=== PATIENT | female | born 1990 | race Caucasian/White ===

== ENCOUNTER 2018-03-08 18:03 | Emergency (ER) | END 2018-03-08 21:49 | disposition home or self-care (01) ==

== ENCOUNTER 2018-03-26 13:21 | Emergency (ER) | END 2018-03-26 15:35 | disposition home or self-care (01) ==

== ENCOUNTER 2018-04-03 18:35 | Emergency (ER) | END 2018-04-04 00:57 | disposition home or self-care (01) ==

== ENCOUNTER 2018-04-17 18:24 | Emergency (ER) | END 2018-04-17 21:05 | disposition home or self-care (01) ==

== ENCOUNTER 2018-04-24 00:05 | Emergency (ER) | END 2018-04-24 03:38 | disposition home or self-care (01) ==

== ENCOUNTER 2018-05-09 17:31 | Emergency (ER) | END 2018-05-09 20:56 | disposition home or self-care (01) ==

== ENCOUNTER 2018-07-30 13:00 | Inpatient (IN) | END 2018-08-01 18:55 | disposition home or self-care (01) | DRG 831 ==

== ENCOUNTER 2018-10-06 14:46 | Outpatient (CLI) | payer OTHER ==
[~2018-10-06] VITALS: Ht 172.7 cm; Wt 80.0 kg
[~2018-10-06 14:46] MED LIST: AMOX250S25 PO; CEPH-443 PO; DOXY1TAB3 PO; ONDA4TAB14 PO; ONDA4TAB8 PO
[2018-10-06 15:07] VITALS: Ht 172.7 cm; Wt 80.0 kg
[2018-10-06 15:08] VITALS: BP 108/73; PULSE 99; RESP 20
[2018-10-06] MEDS ORDERED: PREN1TAB13 PO (15:15)
--- NOTE | 2018-10-06 18:03 | TRIAGE ---
OB Triage Datetime Report Generated by CPN: 10/06/2018 18:03 Datetime: 10/06/2018 15:20 Maternal Assessment Level of Consciousness: Fully Conscious DTR's/Clonus: DTRs 2+ Headache: Denies Blurred Vision: No Nausea/Vomiting: Denies RUQ Epigastric Pain: Denies Facial Edema: None Labor Evaluation Frequency: NONE Pattern: Normal: <= 5 Contractions in 10 Minutes Resting Tone [place]: Relaxed Heart Rate FHR Baseline Rate: 140 Monitor Mode: External US FHR Baseline Changes: No Baseline Change Variability: Moderate 6-25 bpm Accelerations: 15X15 Decelerations: None Category: Category I Pain Assessment Pain Scale: 3 Pain Presence: Constant Pain Goal: 3 Vaginal Exam Dilatation (cms): 0.0 Effacement (%): 0 Exam By: JERI MAN Vaginal Bleeding: None Cervix, Consistency: Firm Cervix, Position: Posterior Datetime: 10/06/2018 15:19 Time of Arrival: 10/06/2018 14:36 EGA: 39.0 Arrived By: Ambulatory Arrived From: Home Chief Complaint: LEAKAGE OF FLUID AND LOWER ABS AND BACK PAIN Movement: Present Contractions: Denies/Absent Rupture of Membranes: Denies Vaginal Bleeding: None Vaginal Discharge: Denies Recent Sexual Intercouse: Denies Abdominal Trauma: Not Applicable Time Provider Notified: 10/06/2018 15:30 (Annotations: Data stored by N on behalf of user) Provider Notified: DR CASTANEDA Initial Plan: EFM,CALL DR CASTANEDA Datetime: 10/06/2018 15:17 Maternal Assessment Level of Consciousness: Fully Conscious DTR's/Clonus: DTRs 2+; No Clonus Headache: Denies Blurred Vision: No Respiratory Effort: Unlabored; Regular Rhythm; Equal Expansion Breath Sounds, Left: Clear and Equal Breath Sounds, Right: Clear and Equal Nausea/Vomiting: Denies RUQ Epigastric Pain: Denies Facial Edema: None Temperature Route: Axillary Fall Risk Assessment History of Falling: (0) No Secondary Diagnosis: (0) No Ambulatory Aid: (0) Bedrest/Nurse Assist IV Therapy: (0) No Gait: (0) Normal/Bedrest/Immobile Mental Status: (0) Oriented to Own Ability Fall Score: 0 Fall Risk Score Definition: No Risk: No action required Datetime: 07/30/2018 15:24 Assessment Type: Admission Assessment Vaginal Bleeding: None Maternal Assessment Level of Consciousness: Fully Conscious DTR's/Clonus: DTRs 2+; No Clonus Headache: Denies Blurred Vision: No Respiratory Effort: Unlabored; Regular Rhythm; Equal Expansion Breath Sounds, Left: Clear and Equal Breath Sounds, Right: Clear and Equal Nausea/Vomiting: Denies RUQ Epigastric Pain: Denies Lower Extremities Edema: None Degree: None Upper Extremities Edema: None Degree: None Facial Edema: None Fall Risk Assessment History of Falling: (0) No Secondary Diagnosis: (0) No Ambulatory Aid: (0) Bedrest/Nurse Assist IV Therapy: (20) Yes Gait: (0) Normal/Bedrest/Immobile Mental Status: (0) Oriented to Own Ability Fall Score: 20 Fall Risk Score Definition: No Risk: No action required Labor Evaluation Frequency: none Heart Rate FHR Baseline Rate: 150 Variability: Moderate 6-25 bpm Accelerations: 10X10 Decelerations: None Pain Presence: None/Denies Membrane Status: Intact Datetime: 07/30/2018 12:10 Time of Arrival: 07/30/2018 13:09 EGA: 29.2 Arrived By: Ambulatory Arrived From: Home Fall Score: 0 Fall Risk Score Definition: No Risk: No action required
--- NOTE | 2018-10-06 23:39 | PN ---
Triage Information Date/Time October 06, 2018 Reason for visit: Rule out SROM and vaginal pressure Weeks of Gestation 39 weeks /Para 3 para 1 Diabetes: none Hypertention: none Additional information 27-year-old with IUP at 39 weeks presented with complaint of vaginal pressure and leaking of fluid. Reports some discharge. She denies any decreased movement or uterine contractions. Objective Vital Signs Date Temp Pulse Resp B/P (MAP) Pulse Ox O2 O2 Flow FiO2 Time Delivery Rate 10/06/18 98.5 99 20 108/73 Room Air 15:08 (85) Heart Rate: 130's Heart Rate Comments Category 1 Exam Laboratory Tests Test 10/06/18 15:00 10/06/18 16:15 Urine Color YELLOW Urine Clarity CLOUDY Urine pH 6.0 Urine Specific [place] 1.026 Urine Ketones NEGATIVE mg/dL Urine Nitrite NEGATIVE mg/dL Urine Bilirubin NEGATIVE mg/dL Urine Urobilinogen 2+ mg/dL Urine Leukocyte Esterase 1+ Cesar/ul Urine Microscopic RBC 1 /HPF Urine Microscopic WBC 12 /HPF Urine Squamous Epithelial Cells MANY /HPF Urine Bacteria FEW /HPF Urine Mucus FEW /HPF Urine Hemoglobin NEGATIVE mg/dL Urine Glucose NEGATIVE mg/dL Urine Total Protein 1+ mg/dl Membranes Rupture NEGATIVE White Blood Count 9.5 10^3/ul Red Blood Count 3.45 10^6/ul Hemoglobin 7.4 g/dl Hematocrit 24.6 % Mean Corpuscular Volume 71.3 fl Mean Corpuscular Hemoglobin 21.4 pg Mean Corpuscular Hemoglobin Concent 30.1 g/dl Red Cell Distribution Width 17.8 % Platelet Count 444 10^3/UL Mean Platelet Volume 10.6 fl Immature Granulocytes % 0.800 % Neutrophils % 65.9 % Lymphocytes % 23.2 % Monocytes % 9.0 % Eosinophils % 0.7 % Basophils % 0.4 % Nucleated Red Blood Cells % 0.3 /100WBC Immature Granulocytes # 0.080 10^3/ul Neutrophils # 6.2 10^3/ul Lymphocytes # 2.2 10^3/ul Monocytes # 0.9 10^3/ul Eosinophils # 0.1 10^3/ul Basophils # 0.0 10^3/ul Nucleated Red Blood Cells # 0.0 10^3/ul Appearance: Alert and oriented x4 does not appear to be in any acute distress Abdomen: Soft, gravid, fundal height consistent with gestational age Sterile speculum examination: No abnormal discharge, no bleeding, cervix appears closed, negative nitrazine, negative R OM test Cervix closed and long NIKOLAS: 13.4 Results/Medications Result Diagram: 10/06/18 1615 Results 24 hrs Laboratory Tests Test 10/06/18 15:00 10/06/18 16:15 Urine Color YELLOW Urine Clarity CLOUDY A Urine pH 6.0 Urine Specific [place] 1.026 Urine Ketones NEGATIVE Urine Nitrite NEGATIVE Urine Bilirubin NEGATIVE Urine Urobilinogen 2+ H Urine Leukocyte Esterase 1+ H Urine Microscopic RBC 1 Urine Microscopic WBC 12 H Urine Squamous Epithelial Cells MANY A Urine Bacteria FEW A Urine Mucus FEW A Urine Hemoglobin NEGATIVE Urine Glucose NEGATIVE Urine Total Protein 1+ H Membranes Rupture NEGATIVE White Blood Count 9.5 # Red Blood Count 3.45 L Hemoglobin 7.4 L Hematocrit 24.6 L Mean Corpuscular Volume 71.3 L Mean Corpuscular Hemoglobin 21.4 L Mean Corpuscular Hemoglobin Concent 30.1 L Red Cell Distribution Width 17.8 #H Platelet Count 444 #H Mean Platelet Volume 10.6 H Immature Granulocytes % 0.800 H Neutrophils % 65.9 Lymphocytes % 23.2 Monocytes % 9.0 Eosinophils % 0.7 Basophils % 0.4 Nucleated Red Blood Cells % 0.3 H Immature Granulocytes # 0.080 H Neutrophils # 6.2 Lymphocytes # 2.2 Monocytes # 0.9 Eosinophils # 0.1 Basophils # 0.0 Nucleated Red Blood Cells # 0.0 Imaging Results PROCEDURE: US OB biophysical profile. CLINICAL INDICATION: Evaluate well-being TECHNIQUE: Multiple sonographic images of the pelvis were obtained. The images were reviewed on a PACS workstation. COMPARISON: OB ultrasound from earlier in the same day. FINDINGS: There is a single intrauterine gestation. There is a normal amount of amniotic fluid with an NIKOLAS = 13.4 cm . Cardiac activity is present with 152 beats per minute There is a vertex presentation. The placenta is posterior. Biophysical profile: movement 2/2 tone 2/2. breathing 2/2 NIKOLAS 2/2 Total 05/02 IMPRESSION: 1. Normal biophysical profile of 05/02. 2. Single intrauterine gestation in cephalic presentation. 3. Posterior placenta without evidence of previa or abruption. PROCEDURE: US OB. CLINICAL INDICATION: Size and dates TECHNIQUE: Multiple sonographic images of the pelvis and gravid uterus were obtained. The images were reviewed on a PACS workstation. COMPARISON: No prior studies are available for comparison. FINDINGS: Gestation: Single live intrauterine gestation. Cardiac activity: 163 beats per minute. Presentation: Vertex. Placenta: Location: Posterior Appearance: No previa or abruption. Measurements: BPD = 9.2 cm, 37 weeks and 2 days, limited HC = 32.2 cm, 36 weeks and 3 days, limited due to position AC = 33.5 cm, 37 weeks and 3 days FL = 7.1 cm, 36 weeks and 4 days Gestational Age: AUA estimated gestational age: 37 weeks 0 days LMP estimated gestational age: 39 weeks 2 days AUA estimated date of delivery: 10/27/18 The EFW = 3111 g, 19.7%ile based on LMP age. RPTAT: AA IMPRESSION: Single live intrauterine gestation of 37 weeks 0 days by ultrasound criteria. Disposition: Discharge Assessment/Plan IUP at 39 weeks vaginal pressure, No evidence of PPROM or labor UTI, Rx given with Keflex QID x 7 days Adequate hydration discussed with the patient Discussed the patient to take iron daily twice a day with vitamin Anemia, asymptomatic Urine was sent for culture and sensitivity Patient was advised to be seen by her primary OB office in 48 hours to 72 hours after discharge from the hospital for follow-up of the urine culture results from the hospital and for management and evaluation of anemia. Currently asymptomatic and stable Patient verbalized understanding. All questions were answered to patient's best satisfaction. CHRISTIANO VILCHIS MD Oct 06, 2018 23:39
== END 2018-10-06 18:10 | disposition home or self-care (01) ==
LOC: OBT 14:46 → L-D 14:46 → OBT 18:10
PROVIDERS: ATTEND Obstetrics & Gynecology
DX: O26.893 Other specified pregnancy related conditions, third trimester (principal); R10.2 Pelvic and perineal pain; Z3A.39 39 weeks gestation of pregnancy
CPT/HCPCS: 76815; 76818; 81001; 84112; 85025; 87086; Z7500; G0463

== ENCOUNTER 2018-10-08 15:35 | Inpatient (IN) | payer OTHER ==
[~2018-10-08] VITALS: Ht 172.7 cm; Wt 79.0 kg
[~2018-10-08 15:35] MED LIST changes: -AMOX250S25 PO; -CEPH-443 PO; -DOXY1TAB3 PO; -ONDA4TAB14 PO; -ONDA4TAB8 PO; +PREN1TAB13 PO
--- NOTE | 2018-10-08 15:54 | TRIAGE ---
OB Triage Datetime Report Generated by CPN: 10/08/2018 15:54 Datetime: 10/08/2018 15:52 Pain Assessment Pain Scale: 8 Pain Presence: Intermittent Pain Type: Cramping Pain Location: Abdomen Pain Relief Measures: Comfort Measures Vaginal Exam Dilatation (cms): 1.0 Effacement (%): 60 Station: -3 Datetime: 10/06/2018 18:01 Time of Arrival: 10/08/2018 15:35 EGA: 39.2 Arrived By: Wheelchair Arrived From: Home Chief Complaint: UC'S Movement: Present Contractions: Regular Rupture of Membranes: Denies Vaginal Bleeding: None Vaginal Discharge: Denies Recent Sexual Intercouse: Denies Abdominal Trauma: Not Applicable Patient Complaints: Contractions Time Provider Notified: 10/08/2018 15:40 Provider Notified: SALCEDA Datetime: 10/06/2018 15:19 EGA: 39.0 Datetime: 10/06/2018 15:17 Fall Risk Assessment Fall Score: 0 Fall Risk Score Definition: No Risk: No action required Datetime: 07/30/2018 15:24 Fall Risk Assessment Fall Score: 20 Fall Risk Score Definition: No Risk: No action required Datetime: 07/30/2018 12:10 EGA: 29.2 Fall Risk Assessment Fall Score: 0 Fall Risk Score Definition: No Risk: No action required
[2018-10-08 16:00] VITALS: BP 113/71; PULSE 100; RESP 18; Ht 172.7 cm; Wt 79.0 kg
[2018-10-08] MEDS ORDERED: MISOPROSTOL 200 MCG TAB PR PRN ×2 (16:30→23:30)
[2018-10-08] MEDS ORDERED: LIDOCAINE 1% (MPF) 30 ML INJ INJ PRN (16:30)
[2018-10-08] MEDS ORDERED: METHYLERGONOVINE 0.2 MG INJ IM PRN ×2 (16:30→23:30)
[2018-10-08] MEDS ORDERED: OXYTOCIN 30 UNITS/LR 500 ML IV SCH ×3 (16:30→23:11)
[2018-10-08] MEDS ORDERED: IBUPROFEN 600 MG TAB PO PRN (16:30)
[2018-10-08] MEDS ORDERED: CARBOPROST 250 MCG INJ IM PRN ×2 (16:30→23:30)
[2018-10-08] MEDS ORDERED: BUTORPHANOL 2 MG INJ IV PRN (16:30)
[2018-10-08] MEDS ORDERED: BUTORPHANOL 1 MG INJ IV PRN (16:30)
[2018-10-08] MEDS ORDERED: OXYTOCIN 30 UNITS/LR 500 ML IV PRN ×2 (16:30→23:30)
[2018-10-08] MEDS: LACTATED RINGER'S 1,000 ML IV SCH ×2 (16:32→20:55)
[2018-10-08] MEDS ORDERED: FENTAnyl 2MCG/ML-ROPIV 0.2% 100 ML ONE (21:32)
--- NOTE | 2018-10-08 21:48 | PREAC ---
Date/Time of Note Date/Time of Note DATE: 10/08/18 TIME: 21:47 Anesthesia Eval and Record Evaluation Time Pre-Procedure Interview DATE: 10/08/18 TIME: 21:47 Age 27 Sex female NPO: 8 hrs Preoperative diagnosis Labor Pain Planned procedure Labor Epidural Past Medical History Past Medical History: Includes Heme: Anemia : : (3), Para: (1), Gestational age: (39) Surgery & Anesthesia Issues No known issue Meds Anticoagulation: No Beta Moy within 24 hr: No Reason Beta Moy not given: Pt. not on B-Moy Reported Medications Pnv95/Ferrous Fumarate/FA ( Vitamins Tablet) 1 Each Tablet, 1 EACH PO, TAB 10/06/18 Discontinued Scripts Ondansetron (Ondansetron Odt) 4 Mg Tab.rapdis, 4 MG PO Q6H PRN for NAUSEA AND/OR VOMITING, #10 TAB Prov:STEPHANIE DUMONT PA-C 05/09/18 Cephalexin* (Keflex*) 500 Mg Capsule, 500 MG PO QID for 5 Days, CAP Prov:STEPHANIE DUMONT PA-C 05/09/18 Doxylamine/Pyridoxine Hcl (TEGAN DR 10-10 MG TABLET) 1 Each Tablet., 1 TAB PO DAILY, #20 TAB Prov:STEPHANIE WARD 04/24/18 Ondansetron (Ondansetron Odt) 4 Mg Tab.rapdis, 4 MG PO Q6H PRN for NAUSEA AND/OR VOMITING, #10 TAB Prov:STEPHANIE WARD 04/24/18 Cephalexin* (Keflex*) 500 Mg Capsule, 500 MG PO QID for 5 Days, CAP Prov:STEPHANIE WARD S. 04/24/18 Amoxicillin/Potassium Clav* (Augmentin*) 250 Mg/5 Ml Susp.recon, 15 ML PO Q12 for 14 Days, #420 ML Prov:SAJITHADDEUSCARMEN 04/03/18 Ondansetron Hcl* (Zofran*) 4 Mg Tablet, 4 MG PO Q6H for NAUSEA AND/OR VOMITING, #30 TAB Prov:LEONARD MENDOZA PA-C 03/08/18 Current Medications Lactated Ringer's 1,000 ml @ 125 mls/hr Q8H IV Last administered on 10/08/18at 20:55; Admin Dose 125 MLS/HR; Start 10/08/18 at 16:17 Butorphanol Tartrate (Stadol) 1 mg Q2H PRN IV PAIN; Start 10/08/18 at 16:30 Butorphanol Tartrate (Stadol) 2 mg Q2H PRN IV PAIN; Start 10/08/18 at 16:30 Lidocaine (Xylocaine 1% (Mpf)) 30 ml ONCE PRN INJ EPISIOTOMY; Start 10/08/18 at 16:30 Oxytocin/Lactated Ringer's 500 ml @ 500 mls/hr ONCE POST IV ; Start 10/08/18 at 16:30 Oxytocin/Lactated Ringer's 500 ml @ 125 mls/hr POST IV ; Start 10/08/18 at 16:30 Ibuprofen (Motrin) 600 mg ONCE PRN PO PAIN LEVEL 1-5; Start 10/08/18 at 16:30 Oxytocin/Lactated Ringer's 500 ml @ 0 mls/hr ONCE PRN IV VAGINAL BLEEDING; Start 10/08/18 at 16:30 Methylergonovine Maleate (Methergine) 0.2 mg ONCE PRN IM VAGINAL BLEEDING; Start 10/08/18 at 16:30 Carboprost Tromethamine (Hemabate) 250 mcg ONCE PRN IM VAGINAL BLEEDING; Start 10/08/18 at 16:30 Misoprostol (Cytotec) 1,000 mcg ONCE PRN MI VAGINAL BLEEDING; Start 10/08/18 at 16:30 Meds reviewed: Yes Allergies Coded Allergies: metoclopramide (Unverified Allergy, Intermediate, uncomfortable, 04/24/18) Allergies Reviewed: Yes Labs/Studies Labs Reviewed: Reviewed by anesthesiologist Result Diagram: 10/08/18 1610 Laboratory Tests 10/08/18 16:10 Blood Bank Test 10/08/18 16:10 Antibody Screen NEGATIVE Blood Type A POSITIVE Rh Immune Globulin Candidate NO test: Positive Studies: ECG (n/a), CXR (n/a) Pre-procedure Exam Last vitals Vital Signs Date Temp Pulse Resp B/P (MAP) Pulse Ox O2 O2 Flow FiO2 Time Delivery Rate 10/08/18 98.4 100 18 113/71 16:00 (85) Airway: Adequate mouth opening, Adequate thyromental dist Mallampati: Mallampati II Teeth: Normal Lung: Normal Heart: Normal ASA Physical Status ASA physical status: 2 Emergency: None Planned Anesthetic Neuraxial: Epidural Planned Pain Management Epidural Pre-operative Attestations Prior to commencing anesthesia and surgery, the patient was re-evaluated, there was verification of: *The patient's identity *The results of appropriate recent lab work and preoperative vital signs *The above evaluation not changing prior to induction *Anesthetic plan, risk benefits, alternative and complications discussed with patient/family; questions answered; patient/family understands, accepts and wishes to proceed. ALO BISHOP MD Oct 08, 2018 21:48
--- NOTE | 2018-10-08 21:50 | PAC ---
Date/Time of Note Date/Time of Note DATE: 10/08/18 TIME: 21:49 Post-Anesthesia Notes Post-Anesthesia Note Last documented vital signs Vital Signs Date Temp Pulse Resp B/P (MAP) Pulse Ox O2 O2 Flow FiO2 Time Delivery Rate 10/08/18 98.4 121 18 113/71 100 room air 22:00 (85) Activity: WNL Respiratory function: WNL Cardiovascular function: WNL Mental status: Baseline Pain reasonably controlled: Yes Hydration appropriate: Yes Nausea/Vomiting absent: Yes ALO BISHOP MD Oct 08, 2018 21:50
[2018-10-08] MEDS ORDERED: NALOXONE (0.4 MG/ML) INJ IV PRN (22:00)
[2018-10-08] MEDS ORDERED: FENTAnyl 2MCG/ML-ROPIV 0.2% 100 ML BAG EPI SCH (22:00)
--- NOTE | 2018-10-08 23:03 | LDN ---
Date/Time of Note Date/Time of Note DATE: 10/08/18 TIME: 23:01 Delivery Summary of a viable baby girl weighing 3265 grams or 7# 3 oz, 19" long, and with Apgars of 8/9. Weeks of Gestation 39w 2d Placenta Delivered: Spontaneously Meconium: none Episiotomy: No Perineal laceration: 0 Anesthesia type: Epidural Estimated blood loss: 150 Sponge & Needle done & correct: Yes All needle counts correct: Yes Any foreign bodies felt in the: No (vagina) Infant Delivery Information Sex Sex: female Apgars 1 Minute: 8 5 Minute: 9 Suctioning Nose & mouth suctioned at edilma: Yes Delee suction performed: No Umbilical Cord Umbilical cord with: 3 Vessels Cord presentations: nuchal cord Nuchal cord present X: 1 Cord Blood was obtained: Yes Mother & Baby Disposition Disposition Mom & Baby to Maternity; Good: Yes Baby to NICU: No MAXWELL BLANCO MD Oct 08, 2018 23:03
--- NOTE | 2018-10-08 23:10 | HP ---
Date/Time of Note Date/Time of Note DATE: 10/08/18 TIME: 23:04 OB - History Hx of Present Free Text/Dictation 27 y.o. A1 with an IUP at 39w 2d came in labor this afternoon with a cervical exam of 30%/1 cm/-3. Estimated Due Date: Oct 13, 2018 : 3 Para: 1 Spontaneous : 1 Care: Good Care Ultrasounds: Normal mid trimester US Obstetrical Complications: None Medical Complications: None Other Concerns: PMHx: depression. PSHx: Cholecystectomy. Appendectomy. POBHx: x 1. All: metaclopromide. Past Family/Social History * Past Medical, Surgical, Family and Obstetric Histories reviewed from chart. Blood Type: A+ Rubella: immune RPR/VDRL: Negative GBS Status: Negative HBsAG: Negative OB Admission Exam Vital Signs Vital Signs Vital Signs Date Temp Pulse Resp B/P (MAP) Pulse Ox O2 O2 Flow FiO2 Time Delivery Rate 10/08/18 98.4 100 18 113/71 16:00 (85) Physical Exam HEENT: WNL Heart: Rhythm Normal Lungs: Clear Abdomen: WNL Extremities: Normal Reflexes: Normal Cervical Dilatation: 1cm Effacement: 25% Station: -3 Membranes: Intact Amniotic Fluid: Clear Heart Rate: 130's Accelerations: Accelerations Present Decelerations: No Decelerations Varibility: Moderate Contractions on Admission: 6-10 Minutes Apart Intensity: Moderate Last 72 hours Lab Results CBC & BMP 10/08/18 16:10 OB Assessment/Plan Reason for admission: active labor Plan: Expectant Management MAXWELL BLANCO MD Oct 08, 2018 23:10
--- NOTE | 2018-10-08 23:10 | DELSUM ---
Delivery Summary A-C Datetime Report Generated by CPN: 10/08/2018 23:09 DELIVERY PERSONNEL Notereader: Castaneda, Kacie MATERNAL INFORMATION Delivery Anesthesia: Epidural Medications in Delivery: 30 UNIT PITOCIN Delivery QBL (ml): 150 Placenta Cultured: No Maternal Complications: None LABOR SUMMARY EDC: 10/13/2018 00:00 No. Babies in Womb: 1 Attempted: No Labor Anesthesia: Epidural LABOR INFORMATION Reason for Induction: Not Applicable Onset of Labor: 10/08/2018 14:00 Complete Dilatation: 10/08/2018 21:39 Oxytocin: N/A Group B Beta Strep: Negative Antibiotics # of Doses: 0 Steroids Given: None Reason Steroids Not Administered: Not Applicable MEMBRANES Membranes Rupture Method: Artificial Rupture of Membranes: 10/08/2018 22:03 Length of Rupture (hr): 0.33 Amniotic Fluid Color: Clear Amniotic Fluid Amount: Small STAGES OF LABOR Stage 1 hr: 7 Stage 1 min: 39 Stage 2 hr: 0 Stage 2 min: 44 Stage 3 hr: 0 Stage 3 min: 4 Total Time in Labor hr: 8 Total Time in Labor min: 27 VAGINAL DELIVERY Episiotomy: None Laceration Extension: N/A Laceration Type: None Laceration Repair: Not Applicable Initial Vag Sponge Count: 10 Final Vag Sponge Count: 10 Initial Vag Sharps Count: 1 Final Vag Sharps Count: 1 Sponge Count Correct: Yes Sharps Count Correct: Yes BABY A INFORMATION Delivery Date/Time: 10/08/2018 22:23 Method of Delivery: Vaginal Born in Route : No : N/A Forceps: N/A Vacuum Extraction: N/A Shoulder Dystocia : N/A SHOULDER DYSTOCIA BABY A Delivery Date/Time: 10/08/2018 22:23 PRESENTATION/POSITION BABY A Presentation: Cephalic Cephalic Presentation: Vertex Breech Presentation: N/A PLACENTA INFORMATION BABY A Placenta Delivery Time : 10/08/2018 22:27 Placenta Method of Delivery: Spontaneous Placenta Status: Delivered SCORES BABY A Heart Rate 1 min: >100 bpm Resp Effort 1 min: Good Cry Reflex Irritability 1 min: Cough/Sneeze/Pulls Away Muscle Tone 1 min: Active Motion Color 1 min: Blue/Pale Resuscitation Effort 1 min: Tactile Stimulation SCORE 1 MIN: 8 Heart Rate 5 min: >100 bpm Resp Effort 5 min: Good Cry Reflex Irritability 5 min: Cough/Sneeze/Pulls Away Muscle Tone 5 min: Active Motion Color 5 min: Body [place], Extremit Blue Resuscitation Effort 5 min: Tactile Stimulation SCORE 5 MIN: 9 INFORMATION BABY A Gestational Age at Delivery: 39.2 Gestational Status: Full Term- 39- 40.6 Weeks Infant Outcome : Liveborn Condition : Stable Infant Sex: Female IDENTIFICATION/MEDS BABY A ID Band Number: [id number] ID Band Location: Right Leg; Left Arm Sensor Applied: Yes Sensor Number: [id number] Sensor Location : Cord Clamp Vitamin K Given : Not Given Erythromycin Given: Not Given WEIGHT/LENGTH BABY A Infant Birthweight (gm): 3265 Weight (lb): 7 Infant Weight (oz): 3 Infant Length (in): 19.00 Length (cm): 48.26 CORD INFORMATION BABY A No. Cord Vessels: 3 Nuchal Cord : Around Neck x1, Tight Cord Blood Taken: Yes Infant Suction: Mouth; Nose ASSESSMENT BABY A Complications: Multiple Variable Decels Physical Findings at Delivery: Within Normal Limits Infant Respirations: Appears Normal Adult Literacy Teacher/ALS Called : No Infant Care By: Thai MITCHELL; NICU RT Transferred To: Remains with Mother
[2018-10-08] MEDS ORDERED: LACTATED RINGER'S 1,000 ML IV* SCH (23:11)
[2018-10-08] MEDS ORDERED: HYDROCODONE/APAP (5/325) TAB PO PRN (23:30)
[2018-10-08] MEDS ORDERED: LANOLIN HPA 1 PKT TOP PRN (23:30)
[2018-10-09] VITALS: BP 115/63; PULSE 94; RESP 18
[2018-10-09] MEDS: IBUPROFEN 600 MG TAB PO SCH ×4 (00:23→17:04)
[2018-10-09 00:30] VITALS: BP 116/61; RESP 18
[2018-10-09 04:20] VITALS: BP 100/54; PULSE 86; RESP 18
[2018-10-09 07:30] VITALS: BP 92/60; PULSE 80; RESP 17
[2018-10-09] MEDS: SENNA/DOCUSATE NA (8.6MG/50MG) TAB PO SCH ×2 (09:33→21:00)
[2018-10-09] MEDS: FERROUS SULFATE (EC) 325 MG TAB PO SCH ×2 (13:35→21:08)
[2018-10-09 15:25] VITALS: BP 106/60; PULSE 91; RESP 16
[2018-10-09] MEDS ORDERED: BISACODYL 10 MG SUPP PR ONE (18:00)
[2018-10-09] MEDS ORDERED: MAGNESIUM HYDROXIDE 30ML CUP PO ONE (18:00)
[2018-10-09 19:40] VITALS: BP 110/72; PULSE 76; RESP 18
[2018-10-10] MEDS: IBUPROFEN 600 MG TAB PO SCH ×2 (00:41→06:00)
[2018-10-10 04:30] VITALS: BP 114/68; PULSE 82; RESP 16
[2018-10-10 08:05] VITALS: BP 100/63; RESP 18
[2018-10-10] MEDS: SENNA/DOCUSATE NA (8.6MG/50MG) TAB PO SCH (08:53)
[2018-10-10] MEDS: FERROUS SULFATE (EC) 325 MG TAB PO SCH (08:53)
[2018-10-10] MEDS ORDERED: DIPHTH/TET/ACEL PERTUSS (ADULT) 0.5 ML VIAL IM* ONE (09:00)
--- NOTE | 2018-11-04 20:19 | DS ---
DATE OF ADMISSION: 10/08/2018 DATE OF DISCHARGE: 10/10/2018 This is a 27-year-old lady, 3, para 1 at 39 and 2/7 weeks, admitted in labor. HISTORY OF PRESENT ILLNESS: See dictated history and physical. PHYSICAL EXAMINATION: See dictated history and physical. ADMITTING DIAGNOSIS: 39 and 2/7 weeks in labor. PROGRESS OF LABOR: See dictated history and physical. The patient progressed well and had a normal spontaneous vaginal delivery on 10/08/2018 at hours 2301 and delivered a healthy baby girl, 8 a nd 9, over intact perineum. She tolerated the delivery well. She did have good course. She was on general diet. She had good bowel movement . She was discharged to home on the second day on general diet and activity was restricted. She was counseled. She was instr ucted. The baby girl weighed 3265 grams, 7 pounds 3 ounces. As mentioned, 8 and 9. She was discharged in good and stable condition on a general diet and activity was restricted. She w as counseled. She was instructed. She was discharged to home in good and stable condition. She was told to come back to the clinic in two weeks and to continue to take her iron and vitamins at home. The hematocrit on discharge was 23.2, hemoglobin of 7. The patient refused blood fusion then. The patient was feeling good. Dictated By: GEO DUNBAR/BHARGAVI Conf#: [id number] DID#: [id number]
== END 2018-10-10 10:45 | disposition home or self-care (01) | DRG 807 ==
LOC: OBT 15:35 → L-D 15:36 → OBT 15:45 → PP1 23:58
PROVIDERS: ADMIT Obstetrics & Gynecology; ATTEND Obstetrics & Gynecology
PROC: 10E0XZZ Delivery of Products of Conception, External Approach (ICD-10-PCS; principal; 2018-10-08)
DX: O69.81X0 Labor and delivery complicated by cord around neck, without compression, not applicable or unspecified (principal); Z37.0 Single live birth; Z3A.39 39 weeks gestation of pregnancy; Z23 Encounter for immunization
CPT/HCPCS: 62319; 85025; 85610; 85730; 86592; 86850; 86900; 86901; 86920; 90715; 99464; G0463; J2590; J3010; J7120